=== PATIENT | male | born 1940 | race Hispanic/Latino ===

== ENCOUNTER 2022-05-20 05:32 | Observation (INO) | payer OTHER ==
[2022-05-20] MEDS ORDERED: hydrALAZINE 20 MG/ML VIAL SLOW IVP PRN (09:37)
[2022-05-20] MEDS ORDERED: Acetaminophen 325 MG TAB PO PRN (09:37)
[2022-05-20] MEDS ORDERED: Ondansetron ODT 4 MG TAB PO PRN (11:57)
[2022-05-20] MEDS ORDERED: Dextrose 50% Abboject 50 ML SYRINGE SLOW IVP PRN (11:57)
[2022-05-20] MEDS ORDERED: HumaLOG 300 UNITS/3 ML VIAL SC PRN ×2 (11:57)
[2022-05-20] MEDS ORDERED: Zolpidem Tartrate 5 MG TAB PO PRN (11:57)
[2022-05-20] MEDS ORDERED: Dextrose 5% in Water 1,000 ML IV PRN (11:57)
[2022-05-20 13:24] VITALS: BMI 25.7
[2022-05-20] MEDS ORDERED: NIFEdipine XL 60 MG TAB PO SCH (13:30)
[2022-05-20] MEDS: Gabapentin 100 MG CAP PO SCH ×2 (13:47→21:10)
[2022-05-20 16:42] LABS: ALT (SGPT) 8 U/L (8-55); AST (SGOT) 7 U/L (5-34); Albumin 3.5 g/dL (3.4-4.8); Alkaline Phosphatase 81 U/L (40-110); Anion Gap 19 mmol/L (10-20); BUN (Urea Nitrogen) 47 mg/dL (8.4-25.7); Bilirubin, Total 0.8 mg/dL (0.2-1.2); Calc. Creatinine Clearance 6 mL/min (70-130); Calcium 9.8 mg/dL (7.8-10.44); Carbon Dioxide 29 mmol/L (23-31); Chloride 93 mmol/L (98-107); Estimated GFR 4; Globulin 3.3 g/dL (2.4-3.5); Glucose 123 mg/dL (83-110); Potassium 5.2 mmol/L (3.5-5.1); Protein, Total 6.8 g/dL (5.8-8.1); Sodium 136 mmol/L (136-145)
[2022-05-20 16:54] LABS: #Eosinphils 0.1 thou/uL (0.0-0.7); #Lymphocytes 1.1 thou/uL (1.20-3.40); #Monocytes 0.9 thou/uL (0.11-0.59); #Neutrophils 4.6 thou/uL (1.40-6.50); %Basophils 0.7 % (0.0-1.0); %Eosinophils 1.5 % (0.0-10.0); %Lymphocytes 16.7 % (21.0-51.0); %Monocytes 13.4 % (0.0-10.0); %Neutrophils 67.8 % (42.0-75.0); Hemoglobin 12.4 g/dL (14.0-18.0); Mean Corpuscular HGB CONC 34.1 g/dL (32.0-36.0); Mean Corpuscular Hemoglobin 30.6 pg (27.0-31.0); Mean Corpuscular Volume 89.7 fL (78.0-98.0); Mean Platelet Volume 10.4 fL (7.4-10.4); Platelet Count 143 thou/uL (130-400); RBC Distribution Width 16.4 % (11.5-14.5); Red Blood Cell (RBC) Count 4.04 mill/uL (4.70-6.10); White Blood Cell (WBC) Count 6.8 thou/uL (4.8-10.8)
[2022-05-20] MEDS ORDERED: Fioricet 325/50/40 mg Tablet PO PRN (17:03)
[2022-05-20 17:54] LABS: HBSAg Index 0.26 S/CO (0-0.99); Hep B Surf Ag Non-Reactive S/CO (NonReactive)
[2022-05-20 17:57] LABS: HBSAB Concentration 49.05 mIU/mL; Hep B Surf AB Reactive (NonReactive)
[2022-05-20] MEDS: Sevelamer Carbonate 800 MG TAB PO SCH (18:21)
[2022-05-20] MEDS ORDERED: Amlodipine 5 MG TAB PO SCH (21:00)
[2022-05-20] MEDS: Heparin 5,000 UNITS/ML VIAL SC SCH (23:11)
[2022-05-21 04:55] LABS: Anion Gap 18 mmol/L (10-20); BUN (Urea Nitrogen) 38 mg/dL (8.4-25.7); Calc. Creatinine Clearance 6 mL/min (70-130); Calcium 9.4 mg/dL (7.8-10.44); Carbon Dioxide 28 mmol/L (23-31); Chloride 95 mmol/L (98-107); Estimated GFR 5; Glucose 82 mg/dL (83-110); Potassium 4.8 mmol/L (3.5-5.1); Sodium 136 mmol/L (136-145)
[2022-05-21 05:01] LABS: Eosinophils 7 % (0-10); Hemoglobin 11.2 g/dL (14.0-18.0); Lymphocytes 19 % (21-51); MDiff Complete? YES; Mean Corpuscular HGB CONC 33.9 g/dL (32.0-36.0); Mean Corpuscular Hemoglobin 30.8 pg (27.0-31.0); Mean Corpuscular Volume 90.8 fL (78.0-98.0); Mean Platelet Volume 10.3 fL (7.4-10.4); Monocytes 15 % (0-10); Neutrophil 58 % (42-75); Platelet Count 126 thou/uL (130-400); RBC Distribution Width 16.4 % (11.5-14.5); Red Blood Cell (RBC) Count 3.65 mill/uL (4.70-6.10); White Blood Cell (WBC) Count 4.2 thou/uL (4.8-10.8)
[2022-05-21] MEDS ORDERED: Ondansetron ODT 4 MG TAB PO SCH (09:00)
[2022-05-21] MEDS ORDERED: Atorvastatin Calcium 20 MG TAB PO SCH (09:00)
[2022-05-21] MEDS ORDERED: DULoxetine 30 MG CAP PO SCH (09:00)
[2022-05-21] MEDS ORDERED: Lisinopril 10 MG TAB PO SCH (09:00)
[2022-05-21] MEDS ORDERED: NIFEdipine XL 60 MG TAB PO SCH (09:00)
[2022-05-21] MEDS ORDERED: Famotidine 20 MG TAB PO SCH (09:00)
[2022-05-21] MEDS ORDERED: Aspirin 81 mg Enteric Coated Tablet PO SCH (09:00)
[2022-05-21] MEDS ORDERED: Folic Acid 1 MG TAB PO SCH (09:00)
[2022-05-21] MEDS: Sevelamer Carbonate 800 MG TAB PO SCH ×2 (09:47→16:47)
[2022-05-21] MEDS: Gabapentin 100 MG CAP PO SCH ×2 (09:47→16:47)
[2022-05-21] MEDS: Heparin 5,000 UNITS/ML VIAL SC SCH (12:17)
[2022-05-21 15:32] VITALS: TEMP 98.7
[2022-05-21 16:47] VITALS: BP 182/85
[2022-05-21] MEDS ORDERED: Amlodipine 5 MG TAB PO SCH (21:00)
== END 2022-05-21 15:30 | disposition home or self-care (01) ==
LOC: 2NO 07:29
PROVIDERS: ADMIT Internal Medicine; ATTEND Internal Medicine
DX: I16.0 Hypertensive urgency (principal); I12.0 Hypertensive chronic kidney disease with stage 5 chronic kidney disease or end stage renal disease; E11.22 Type 2 diabetes mellitus with diabetic chronic kidney disease; N18.6 End stage renal disease; D63.1 Anemia in chronic kidney disease; E87.5 Hyperkalemia; D69.6 Thrombocytopenia, unspecified; E78.5 Hyperlipidemia, unspecified; I25.10 Atherosclerotic heart disease of native coronary artery without angina pectoris; K21.9 Gastro-esophageal reflux disease without esophagitis; E83.39 Other disorders of phosphorus metabolism; J32.1 Chronic frontal sinusitis; Z85.46 Personal history of malignant neoplasm of prostate; Z86.73 Personal history of transient ischemic attack (TIA), and cerebral infarction without residual deficits; Z79.82 Long term (current) use of aspirin; Z79.84 Long term (current) use of oral hypoglycemic drugs; Z79.899 Other long term (current) drug therapy; Z88.5 Allergy status to narcotic agent; Z88.8 Allergy status to other drugs, medicaments and biological substances; Z95.1 Presence of aortocoronary bypass graft; Z98.2 Presence of cerebrospinal fluid drainage device; Z99.2 Dependence on renal dialysis; Z20.822 Contact with and (suspected) exposure to COVID-19
CPT/HCPCS: 70450; 80048; 80053; 82962 ×2; 85025 ×2; 86706; 87340; 93005; 96374; G0378 ×2; U0003; U0005; 36415; 36416; 90935; 93010; G0257; J0360; Q0162